=== PATIENT | male | born 1995 | race Hispanic/Latino ===

== ENCOUNTER 2019-01-25 08:25 | Emergency (ER) | payer SELFPAY ==
[2019-01-25 08:30] VITALS: BP 140/80
[2019-01-25] MEDS ORDERED: IBUPROFEN PO ONE (09:46)
--- NOTE | 2019-01-25 10:36 | Emergency Department Report ---
ED Head Injury/Laceration HPI - HPI Pain: None Tetanus Status: Up to Date Symptoms: Loss of Consciousness: No, Nausea: No, Blurred Vision: No, Unusual Behavior: No, Headache: No, Swelling: No, Bruising: No, Break in Skin: Yes, Bleeding: Yes (controlled) Other History: This is a 23-year-old male who presents to the ED complaining laceration to the frontal head close the scalp sustained 2 hours prior to arrival. Patient states that he accidentally hit his last broken cause some minor laceration to his forehead. Patient denies any loss of consciousness, nausea vomiting or severe injury to the head. ED General PMH - Social History Smoking Status: Current Some Day Smoker ED Review of Systems ROS: Stated complaint: HEAD INJURY Other details as noted in HPI Comment: All other systems reviewed and negative Head Inj w/lac Physical Exam - Exam General: Vital signs noted. No distress. Alert and acting appropriately. Head: Yes PERRL, No Hemotympanum, No Hematoma/Ecchymosis, No Epistaxis, No Stepoff/Deformity, No Abrasion, No Foreign Body Laceration Location: Frontal (forehead) Chest, Abd, & Ext: Yes Clear Lung Sounds, Yes Regular Heart Rhythm, No Neck Pain, No Chest Injury/Pain, No Heart Murmur, No Abdominal Tenderness, No Back Tenderness, No Extremity Injury Neuroligical (Head Inj W/O Lac: Yes Normal Speech, Yes Normal Gait, No Lethargy, No Disorientation, No Focal Numbness, No Focal Weakness - Laceration /Wound Repair Right Head Wound Location: face Wound Length (cm): 2 Wound's Depth, Shape: superficial, linear Betadine Prep?: No Volume Anesthetic (ccs): 0 Wound Repaired With: Steri-strips, Dermabond Number of Sutures: 0 ED Disposition Clinical Impression: Laceration of head Disposition: DC-01 TO HOME OR SELFCARE Is pt being admited?: No Does the pt Need Aspirin: No Condition: Stable Instructions: Laceration (ED), Skin Adhesive Care (ED) Additional Instructions: Make sure to follow up with the primary care physician as discussed. Take all your medications as you've been prescribed. If you have any worsening symptoms or develop new symptoms please return to ED immediately. Prescriptions: cephALEXin [Keflex] 500 mg PO Q12HR #10 cap Ibuprofen [Motrin 800 MG tab] 800 mg PO TID #30 tablet Referrals: WINIFRED CURRY MD [Primary Care Provider] - 3-5 Days [facility] [Outside] - 3-5 Days [facility] [Outside] - 3-5 Days Forms: Accompanied Note, Work/School Release Form(ED) Time of Disposition: 10:34 ED Medical Decision Making - Medical Decision Making This is a 23-year-old male who presents with a small laceration to his right upper frontal forehead. Abrasion was cleaned Dermabond applied to the small laceration and Steri-Strips applied. See procedure note. Patient tolerated procedure well. Vital signs are normal patient is in no acute distress
== END 2019-01-25 10:48 | disposition home or self-care (01) ==
LOC: ED 08:25
DX: S01.81XA Laceration without foreign body of other part of head, initial encounter (principal); F17.200 Nicotine dependence, unspecified, uncomplicated; W22.8XXA Striking against or struck by other objects, initial encounter; Y93.89 Activity, other specified; Y92.89 Other specified places as the place of occurrence of the external cause; Y99.0 Civilian activity done for income or pay
CPT/HCPCS: 99282